=== PATIENT | male | born 1960 | race Caucasian/White ===

== ENCOUNTER 2020-09-19 08:15 | Day surgery (SDC) | payer BC, SELFPAY ==
[2020-09-18 13:42] VITALS: BMI 39.6
[2020-09-19 08:38] VITALS: BP 147/79; PULSE 66; RESP 16; TEMP 36.3; O2SAT 96
--- NOTE | 2020-09-19 08:48 | ANES.PREANE2 ---
Pre-Anesthetic Assessment Pre-Anesthetic Assessment: Height/Weight: Height 1.7 m Weight 114.759 kg Temp Pulse Resp BP Pulse Ox 97.3 F L 66 16 147/79 96 09/19/20 08:38 09/19/20 08:38 09/19/20 08:38 09/19/20 08:38 09/19/20 08:38 Preop Diagnosis: hematochezia Proposed Procedure: Operation Date: 09/19/20 09:30 Proposed Procedures p Colonoscopy 35307 k92.1(Not Applicable) - Joe Thompson MD Familial anesthetic complications: None Was Beta Savita taken within 24 hours: N/A Last intake: Intake NPO > 8hrs Last Liquid Date 09/18/20 Last Liquid Time 20:00 Last Solid Date 09/17/20 Last Solid Time 20:00 Social: Social History: No alcohol and No tobacco Exam: Pre-Anes Outpt Exam: alert, oriented x 3, clear to auscultation bilaterally and regular rate & rhythm Airway: Cervical ROM: WNL MP: 4 Dentition: Full Additional comments: denies chipped teeth, but the front two appear chipped (he says they grew in like this) CV/HEM: CV/HEM: Afib (hx a fib, on digoxin and metoprolol, aspirin) and HTN Metabolic: Metabolic: DM and Morbid obesity Anesthetic Plan: ASA status: 3 Anesthesia: MAC Other: Hasn't take metoprolol this morning, will give for procedure Risk of > 500 ml blood loss (7ml/kg in children): No PFSH Anesthesia PFSH: Family History (Updated 09/10/20 @ 15:00 by ANGELICA Randle) Mother Cancer Father Stroke Social History (Updated 09/10/20 @ 15:01 by ANGELICA Randle) Smoking and tobacco status: never smoked Alcohol intake: never service: No History of recent travel: No Current gender identity: Male Data Anesthesia Cardiac Studies: No Data to Display
[2020-09-19] MEDS: sodium chloride 0.9% 1,000 ML 30 ML IV (08:51)
[2020-09-19 08:57] LABS: Glucose Point of Care 183 mg/dL (70-110)
[2020-09-19] MEDS: metoprolol succinate ER (24 HR) 100 mg Tablet PO (09:15)
--- NOTE | 2020-09-19 09:56 | W.PM.OPSUD ---
Surgery/Procedure H&P Update DATE OF PROCEDURE: September 19, 2020 DATE H&P PERFORMED: 09/10/20 PREOP DIAGNOSIS: hematochezia PLANNED PROCEDURE: Operation Date: 09/19/20 09:30 Proposed Procedures p Colonoscopy 22252 k92.1(Not Applicable) - Joe Thompson MD
[2020-09-19 10:33] VITALS: BP 95/65; PULSE 61; RESP 16; TEMP 36.1; O2SAT 97
[2020-09-19 10:43] VITALS: BP 124/82; PULSE 60; RESP 18; O2SAT 97
--- NOTE | 2020-09-19 17:14 | ANE.PACU2 ---
Inpatient post-anesthesia follow up: Airway intact: Yes Vital signs: Temperature 97 F Pulse Rate 60 Respiratory Rate 18 Blood Pressure 124/82 Pulse Oximetry 97 Oxygen Delivery Me thod Room Air Oxygen Flow Rate 2 Fraction of Inspir ed Oxygen Hydration adequate: Yes Nausea and vomiting: No Pain level: 2 Mental status: Baseline
== END 2020-09-19 10:59 | disposition home or self-care (01) ==
PROVIDERS: Visit Provider Internal Medicine
PROC: 0DJD8ZZ Inspection of Lower Intestinal Tract, Via Natural or Artificial Opening Endoscopic (ICD-10-PCS; CPT 45378; principal; 2020-09-19 09:30)
DX: K92.1 Melena (principal); I48.91 Unspecified atrial fibrillation; I10 Essential (primary) hypertension; E11.9 Type 2 diabetes mellitus without complications; E66.01 Morbid (severe) obesity due to excess calories; Z68.39 Body mass index [BMI] 39.0-39.9, adult
CPT/HCPCS: 12345; 36416; 45378; 82962; J2704; J7030